=== PATIENT | female | born 1985 | race Caucasian/White ===

== ENCOUNTER 2025-03-24 14:20 | Outpatient (CLI) | payer MEDICAID, SELFPAY | END 2025-03-24 14:21 | disposition home or self-care (01) | LOC: NFLDREF 03-28 09:48 | PROVIDERS: Visit Provider Physician Assistant | DX: N30.01 Acute cystitis with hematuria (principal) | CPT/HCPCS: 87086 ==

== ENCOUNTER 2025-04-22 16:24 | Outpatient (CLI) | payer MEDICAID, SELFPAY | END 2025-04-22 16:25 | disposition home or self-care (01) | LOC: NFLDREF 04-30 16:52 | PROVIDERS: Visit Provider Family Medicine | DX: N39.0 Urinary tract infection, site not specified (principal) | CPT/HCPCS: 87086 ==